=== PATIENT | female | born 1980 | race Caucasian/White ===

== ENCOUNTER 2017-03-03 09:14 | Emergency (ER) | payer SELFPAY ==
[~2017-03-03] VITALS: Ht 160 cm; Wt 75.0 kg
[2017-03-03] MEDS ORDERED: KEPP500 PO (09:20)
[2017-03-03] MEDS ORDERED: LORAZEPAM 1MG TABLET PO ONE (10:15)
[2017-03-03] MEDS ORDERED: LEVETIRACETAM 500MG TABLET PO ONE (10:15)
[2017-03-03 10:19] LABS: BASOPHILS % 0.4 % (0.0-2.0); HEMATOCRIT. 38.7 % (36.0-48.0); LYMPHOCYTES % 15.3 % (20.0-50.0); MEAN CORPUSCULAR HEMOGLOBIN 28.6 pg (28.0-32.0); MEAN CORPUSCULAR HGB CONC 33.5 g/dL (31.0-37.0); MEAN CORPUSCULAR VOLUME 85.5 fL (81.0-99.0); MONOCYTES % 6.1 % (2.0-8.0); NEUTROPHILS % 77.2 % (40.0-76.0); PLATELET 277 x1000/uL (130-400); RED BLOOD CELL COUNT 4.52 mill/uL (4.2-5.4); RED CELL DISTRIBUTION WIDTH 13.7 % (11.6-14.6); WHITE BLOOD COUNT 8.4 x1000/uL (4.5-11.0)
[2017-03-03 10:20] LABS: CHLORIDE 107 mEq/L (98-107); INDEX HEMOLYSI 1 (1-3); INDEX ICTERIC 1 (1-4); INDEX LIPEMIC 1 (1-3)
[2017-03-03 10:26] LABS: ALANINE AMINOTRANSFERASE 15 IU/L (13-61); ALBUMIN 3.5 g/dL (3.4-5.0); ANION GAP 15; CALCIUM 8.3 mg/dL (8.5-10.1); CARBON DIOXIDE 25 mEq/L (21-32); UREA NITROGEN BLOOD 12 mg/dL (7-21); eGFR > 60 mL/min (>60)
[2017-03-03 10:37] LABS: HCG SCREEN NEGATIVE
[2017-03-03 11:30] VITALS: BP 122/76
== END 2017-03-03 11:56 | disposition home or self-care (01) ==
LOC: ER 09:38
DX: F41.1 Generalized anxiety disorder (principal); F41.0 Panic disorder [episodic paroxysmal anxiety]; R56.9 Unspecified convulsions
CPT/HCPCS: 36415; 80053; 84703; 85025; 99284; Z7610